=== PATIENT | male | born 1985 | race Two or more races ===

== ENCOUNTER 2021-07-07 05:07 | Emergency (ER) | payer OTHER ==
[2021-07-07] MEDS ORDERED: Azithromycin 250 MG Tab PO ONE (05:27)
--- NOTE | 2021-07-07 05:28 | EDM.PDOC ---
ED HPI GENERAL MEDICAL PROBLEM - General Chief Complaint: ENT Problem Stated Complaint: SORE THROAT Time Seen by Provider: 07/07/21 05:19 - History of Present Illness INITIAL COMMENTS - FREE TEXT/NARRATIVE: HISTORY AND PHYSICAL: History of present illness: Is a 35-year-old gentleman who presents to the ER today secondary to a sore throat x3 days. Patient denies any recent fevers, shakes, chills, nausea, vomiting, diarrhea, dysuria, frequency, urgency. Patient reports occasional cough nonproductive. Patient denies any shortness of breath. Patient reports he is able to tolerate secretions at difficulty. Patient is been tolerating p.o. solids and liquids without difficulty. Review of systems: As per history of present illness and below otherwise all systems reviewed and negative. Past medical history: As per history of present illness and as reviewed below otherwise noncontributory. Surgical history: As per history of present illness and as reviewed below otherwise noncontributory. Social history: No reported history of drug abuse. Family history: As per history of present illness and as reviewed below otherwise noncontributory. Physical exam: This patient was seen and evaluated during the 2019 SARS-CoV-2 novel coronavirus pandemic period. Community viral transmission is ongoing at time of this encounter and the emergency department is operating under pandemic response procedures. Constitutional: Patient is oriented to person, place, and time. Appears well- developed and well-nourished. No distress. HEENT: Moist mucous membranes Head: Normocephalic and atraumatic Eyes: Right eye exhibits no discharge. Left eye exhibits no discharge. No scleral icterus Neck: Normal range of motion. No tracheal deviation present. Cardiovascular: Normal rate and regular rhythm. Pulmonary: Effort normal, no respiratory distress. Abdominal: No distention Musculoskeletal: Normal range of motion Neurologic: Alert and oriented to person, place and time. Skin: [place], warm and dry. Psychiatric: Normal mood and affect. Behavior is normal. Judgment and thought content normal. Nursing note and vital signs have been reviewed Patient's ER physical exam is significant for erythematous tonsils bilaterally that are swollen. No exudate identified. Patient has tender submandibular lymphadenopathy bilaterally. Patient has no trismus. Patient has no stridor. Patient's oropharynx is patent and has no evidence of airway obstruction. Diagnostics: [] Therapeutics: [] Assessment and plan: 35-year-old gentleman who presents ER today secondary to a sore throat. Patient get started on antibiotics. Patient was given a dose of Zithromax here in the ED and will be discharged home with a prescription. Patient was given a dose of ibuprofen help with his pain in the meantime. Reassessment at the time of disposition demonstrates that the patient is in no acute distress. The patient has remained stable throughout the entire ED visit and is without objective evidence for acute process requiring urgent intervention or hospitalization. The patient is stable for discharge, counseling is provided as documented above, discussed symptomatic treatment and specific conditions for return. I have spoken with the patient/caregiver and discussed todays findings, in addition to providing specific details for the plan of care. Questions are answered and there is agreement with the plan. Definitive disposition and diagnosis as appropriate pending reevaluation and review of above. throat Pain Score (Numeric/FACES): 10 - Related Data Allergies Allergy/AdvReac Type Severity Reaction Status Date / Time No Known Allergies Allergy Verified 07/07/21 05:16 Home Meds: Home Meds Azithromycin [Zithromax] 250 mg PO DAILY #4 tablet 07/07/21 [Rx] Ibuprofen 600 mg PO Q6HR PRN #30 tablet 07/07/21 [Rx] Past Medical History - Past Health History Medical/Surgical History: Denies Medical/Surgical History Social & Family History - Family History Family Medical History: No Pertinent Family History - Tobacco Use Tobacco Use Status *Q: Never Tobacco User - Caffeine Use Caffeine Use: Reports: Energy Drinks - Recreational Drug Use Recreational Drug Use: No ED ROS GENERAL - Review of Systems Review Of Systems: See Below ED EXAM, GENERAL - Physical Exam Exam: See Below Course - Vital Signs Last Recorded V/S: Last Vital Signs Temp 97.4 F 07/07/21 05:17 Pulse 71 07/07/21 05:17 Resp 18 07/07/21 05:17 BP 129/79 07/07/21 05:17 Pulse Ox 97 07/07/21 05:17 Departure - Departure Time of Disposition: 05:26 Disposition: Home, Self-Care 01 Condition: Good Clinical Impression: Pharyngitis - Discharge Information Instructions: Sore Throat, [id number] Additional Instructions: Your seen and evaluated in the ER today secondary to a sore throat. You will get started on antibiotics to cover any kind of infection such as strep. Please make an appointment see your family doctor next week. The following information is given to patients seen in the emergency department who are being discharged to home. This information is to outline your options for follow-up care. We provide all patients seen in our emergency department with a follow-up referral. The need for follow-up, as well as the timing and circumstances, are variable depending upon the specifics of your emergency department visit. If you don't have a primary care physician on staff, we will provide you with a referral. We always advise you to contact your personal physician following an emergency department visit to inform them of the circumstance of the visit and for follow-up with them and/or the need for any referrals to a consulting specialist. The emergency department will also refer you to a specialist when appropriate. This referral assures that you have the opportunity for follow-up care with a specialist. All of these measure are taken in an effort to provide you with optimal care, which includes your follow-up. Under all circumstances we always encourage you to contact your private zion [email or web address] who remains a resource for coordinating your care. When calling for follow-up care, please make the office aware that this follow-up is from your recent emergency room visit. If for any reason you are refused follow-up, please contact the [facility] Emergency Department at and asked to speak to the emergency department charge nurse. [facility] [address] [place] [address] [place] [address] Sepsis Event Note (ED) - Evaluation Sepsis Screening Result: No Definite Risk - Focused Exam Vital Signs: Vital Signs Temp Pulse Resp BP Pulse Ox 07/07/21 05:17 97.4 F 71 18 129/79 97
== END 2021-07-07 05:39 | disposition home or self-care (01) ==
LOC: MW.ED 05:07
DX: J02.9 Acute pharyngitis, unspecified (principal)
CPT/HCPCS: 99283; A9270

== ENCOUNTER 2023-01-03 18:30 | Emergency (ER) | payer MEDICAID, OTHER | END 2023-01-03 20:03 | disposition home or self-care (01) | LOC: MW.ED 18:30 | DX: J02.9 Acute pharyngitis, unspecified (principal) | CPT/HCPCS: 87651-QW; 99283 ==

== ENCOUNTER 2023-08-19 15:26 | Emergency (ER) | payer MEDICAID ==
[2023-08-19] MEDS: Dexamethasone 10 MG/ML SDV IVPUSH ONE (16:39)
[2023-08-19 17:24] LABS: CORONAVIRUS COVID-19 NAA NEGATIVE (NEGATIVE); INFLUENZA A NAA NEGATIVE (NEGATIVE); INFLUENZA B NAA NEGATIVE (NEGATIVE); RESPIRATORY SYNCYTIAL VIR NAA NEGATIVE (NEGATIVE)
== END 2023-08-19 17:36 | disposition home or self-care (01) ==
LOC: MW.ED 15:26
DX: J02.9 Acute pharyngitis, unspecified (principal)
CPT/HCPCS: 0241U; 87651; 96374; 99283; J1100; 99284